=== PATIENT | female | born 1970 | race Caucasian/White ===

== ENCOUNTER 2018-04-05 12:09 | Emergency (ER) | payer OTHER ==
[~2018-04-05] VITALS: Ht 157.5 cm; Wt 77.1 kg
[2018-04-05] MEDS ORDERED: PROTONIX40 MG PO (15:45)
== END 2018-04-05 18:14 | disposition home or self-care (01) ==
LOC: ER 12:09
DX: K29.60 Other gastritis without bleeding (principal)